=== PATIENT | male | born 1975 | race Asian ===

== ENCOUNTER 2017-12-09 17:20 | Emergency (ER) | payer MEDICAID, OTHER ==
[~2017-12-09] VITALS: Ht 185.4 cm; Wt 122.4 kg
[2017-12-09] MEDS ORDERED: KETOROLAC 30 MG/1 ML IM ONE (18:00)
[2017-12-09] MEDS ORDERED: DIAZEPAM 5 MG TABLET PO ONE (18:00)
[2017-12-09 18:20] VITALS: BP 138/74
== END 2017-12-09 18:22 | disposition home or self-care (01) ==
LOC: ED 18:15
DX: S39.012A Strain of muscle, fascia and tendon of lower back, initial encounter (principal); M54.40 Lumbago with sciatica, unspecified side; X58.XXXA Exposure to other specified factors, initial encounter; Y93.89 Activity, other specified; Y92.89 Other specified places as the place of occurrence of the external cause; Y99.8 Other external cause status
CPT/HCPCS: 96372; 99283; J1885

== ENCOUNTER 2019-08-11 09:11 | Emergency (ER) | payer BC ==
[~2019-08-11] VITALS: Ht 185.4 cm; Wt 119.5 kg
[2019-08-11 09:18] VITALS: BP 135/90
--- NOTE | 2019-08-11 10:13 | NUR ---
rash left chest wall wrapping from from to back for one week
== END 2019-08-11 10:45 | disposition home or self-care (01) ==
LOC: ED 10:39
DX: B02.9 Zoster without complications (principal); F17.200 Nicotine dependence, unspecified, uncomplicated
CPT/HCPCS: 99283

== ENCOUNTER 2020-12-15 08:18 | Emergency (ER) | payer BC ==
[~2020-12-15] VITALS: Ht 185.4 cm; Wt 121.7 kg
[2020-12-15] MEDS ORDERED: ACETAMINOPHEN 500 MG TABLET ONE (09:04)
--- NOTE | 2020-12-15 09:13 | NUR ---
PT MEDICATED PER ERP ORDER FOR FEVER AND SCHNEIDER. COVID SWAB OBTAINED, WALKED TO LAB. XRAY AT BS. CALL LIGHT WITHIN REACH.
[2020-12-15 09:25] LABS: MEAN CORPUSCULAR HEMOGLOBIN 27.2 pg (27.5-34.5); MEAN CORPUSCULAR HGB CONC 33.4 g/dL (33.2-36.2); PLATELET COUNT 235 x10^3/uL (130-400); RED BLOOD COUNT 6.35 x10^6/uL (4.38-5.82); RED CELL DISTRIBUTION WIDTH 13.6 % (9.4-14.8)
[2020-12-15] MEDS ORDERED: ACETAMINOPHEN 325 MG TABLET PO ONE (09:30)
[2020-12-15 09:38] LABS: ALANINE AMINOTRANSFERASE 89 U/L (12-78); ALBUMIN 3.3 g/dL (3.4-5.0); ANION GAP 4 mmol/L (5-15); CALCIUM 8.6 mg/dL (8.5-10.1); CHLORIDE 104 mmol/L (98-107); CREATININE 1.38 mg/dL (0.7-1.3)
[2020-12-15 09:40] LABS: ALKALINE PHOSPHATASE 160 U/L (45-117); BILIRUBIN,TOTAL 0.4 mg/dL (0.2-1.0); TOTAL PROTEIN 8.3 g/dL (6.4-8.2)
[2020-12-15 10:06] LABS: <RBC MORPHOLOGY> NORMAL; BAND#(MANUAL) 0.73 x10^3/uL; BANDS%(MANUAL) 14 % (0-7); LYMPH#(MANUAL) 0.94 x10^3/uL (1-3.4); LYMPHS% (MANUAL) 18 % (22-44); MONOS#(MANUAL) 0.36 x10^3/uL (0.3-2.7); MONOS% (MANUAL) 7 % (2-9); SEG#(MANUAL) 3.17 x10^3/uL (1.8-6.8); SEGS% (MANUAL) 61 % (42-75)
[2020-12-15 10:07] LABS: <PLATELET ESTIMATE> ADEQUATE; LARGE PLATELETS 1+
[2020-12-15] MEDS ORDERED: DOXYCYCLINE 100 MG in DEXTROSE 5% 250 ML IV SCH (10:30)
[2020-12-15] MEDS ORDERED: CEFTRIAXONE 1,000 MG in DEXTROSE 5% 50 ML IVPB ONE (10:30)
--- NOTE | 2020-12-15 10:30 | NUR ---
IV PLACED, BC X 1 DRAWN WITH START. AWAITING 2ND BC THEN ANTIBIOTICS. CALL LIGHT WITHIN REACH. PT FEELING BETTER, SCHNEIDER GONE, TEMP IMPROVED.
--- NOTE | 2020-12-15 10:55 | NUR ---
2ND BC DRAWN, IV ANTIBIOTICS STARTED.
--- NOTE | 2020-12-15 11:37 | NUR ---
VIBRAMYCIN INFUSING PER ERP ORDER. PT SLEEPING INTERMITTENTLY. VS UPDATED.
--- NOTE | 2020-12-15 12:19 | NUR ---
EXCELLENCE CONSULTANT AMBULATED PT IN ROOM WITH PULSE OX. PULSE OX IMPROVED WITH AMBULATION/EXERTION TO 95%. ERP NOTIFIED.
[2020-12-15 12:56] VITALS: BP 122/64
== END 2020-12-15 13:29 | disposition home or self-care (01) ==
LOC: ED 12:24
DX: U07.1 COVID-19 (principal); J15.9 Unspecified bacterial pneumonia; R51.9 Headache, unspecified; R94.31 Abnormal electrocardiogram [ECG] [EKG]
CPT/HCPCS: 36415; 71045; 80053; 83605; 84145; 85025; 87040; 93005; 96365; 96366; 96368; 99285; J0696; J7060; U0003; U0005